=== PATIENT | female | born 1995 | race Caucasian/White ===

== ENCOUNTER 2016-09-13 16:03 | Inpatient (IN) | payer BC, OTHER ==
[~2016-09-13] VITALS: Ht 172.7 cm; Wt 54.4 kg
[2016-09-13 17:37] LABS: *URINE HCG, QUAL NEGATIVE (NEGATIVE)
[2016-09-13 17:47] LABS: *AMPHETAMINE, URINE NEGATIVE (NEGATIVE); *BARBITURATE, URINE NEGATIVE (NEGATIVE); *CANNABINOID, URINE NEGATIVE (NEGATIVE); *COCCAINE, URINE NEGATIVE (NEGATIVE); *OPIATE, URINE POSITIVE (NEGATIVE); *PHENCYCLIDINE SCREEN,URINE NEGATIVE (NEGATIVE)
[2016-09-13 18:27] VITALS: BP 90/60
--- NOTE | 2016-09-13 18:29 | NUR ---
ADMISSION: A 21 YO FEMALE A/O X 4 WITH A STEADY GAIT ADMITTED TO DETOX LEVEL OF CARE FOR OPIATE DEPENDENCE. SKIN INTACT AND WARM AND DRY.SHE STATES SHE HAS BEEN SMOKING HEROIN 1 GM DAILY X 1 MONTH. LAST USED AT 11:30 PM LAST NIGHT. SHE ALSO REPORTS USING I MG OF XANAX TWICE A WEEK FOR THE LAST MONTH. SHE REPORTS SHE WAS IN DETOX 6 WEEKS AGO. SHE STATES SHE ALSO WAS AT [facility] IN [place] 6 MONTHS AGO. SHE PRESENTS WITH GUARDED AFFECT AND ANXIOUS MOOD. SHE DENIES S/S OF W/D AT THIS TIME. SHE REPORTS LIVING WITH HER BOYFRIEND AND STATES HE DOES NOT USE. SHE DENIES MEDICAL HISTORY. SHE DENIES ALLERGIES. SHE DENIES A PCP. SHE DENIES A SEIZURE HISTORY. SHE DENIES S/I AND H/I. SHE STATES SHE CANNOT STOP USING ON HER OWN DESPITE NEGATIVE CONSEQUENCES. ORIENTED PT TO STAFF AND UNIT. ENCOURAGED INCREASED FLUIDS. WILL CONTINUE TO MONITOR AND PROVIDE SAFE AND SUPPORTIVE ENVIRONMENT.
[2016-09-13] MEDS ORDERED: THIAMINE HCL 200 MG/2 ML VIAL IM ONE (19:00)
[2016-09-13] MEDS ORDERED: MAG HYDROX/AL HYDROX/SIMETH 30 ML LIQUID UDC PO PRN (19:00)
[2016-09-13] MEDS ORDERED: diphenhydrAMINE 50 MG CAPSULE PO PRN (19:00)
[2016-09-13] MEDS ORDERED: ACETAMINOPHEN 325 MG TABLET PO PRN (19:00)
[2016-09-13] MEDS ORDERED: ONDANSETRON 4 MG/2 ML VIAL IM PRN (19:00)
[2016-09-13] MEDS ORDERED: LOPERAMIDE HCL 2 MG CAPSULE PO PRN ×2 (19:00)
[2016-09-13] MEDS ORDERED: LORAZEPAM 2 MG/1 ML VIAL IM PRN (19:00)
[2016-09-13] MEDS ORDERED: IBUPROFEN 600 MG TABLET PO PRN (19:00)
[2016-09-13] MEDS ORDERED: MAGNESIUM HYDROXIDE 30 ML LIQUID UDC PO PRN (19:00)
[2016-09-13] MEDS ORDERED: CLONIDINE HCL 0.1 MG TABLET PO PRN (19:00)
[2016-09-13] MEDS ORDERED: DICYCLOMINE HCL 20 MG TABLET PO PRN (19:00)
[2016-09-13] MEDS ORDERED: MIRALAX 17 GM POWD.PACK PO PRN (19:00)
[2016-09-13] MEDS ORDERED: BUPRENORPHINE HCL 2 MG TAB.SUBL SL PRN (19:00)
[2016-09-13] MEDS ORDERED: LORAZEPAM 1 MG TABLET PO PRN ×2 (19:00)
[2016-09-13] MEDS ORDERED: HYDROXYZINE PAMOATE 25 MG CAPSULE PO PRN (19:00)
[2016-09-13] MEDS ORDERED: METHOCARBAMOL 750 MG TABLET PO PRN (19:00)
[2016-09-13] MEDS ORDERED: ONDANSETRON ODT 4 MG TAB.RAPDIS SL PRN (19:00)
[2016-09-13 20:00] VITALS: BP 102/64
--- NOTE | 2016-09-13 20:00 | NUR ---
START OF SHIFT NOTE Pt is a 21 y/o female admitted for Heroin and Xanax dependence and use. Pt has NKA and denies any PMH. Per day shift nurse pt is not on a taper at this time, but has PRN medications available for any discomfort/distress reported or noted. Pt didn't receive any PRNS during the day shift. Last COW: 4. At this time pt is laying down in her bed watching television. Pt stated " I'm doing alright." Pt denied any pain/discomfort. Pt was encouraged to notify staff of any changes in condition or of any concerns. Pt verbalized an understanding. All safety measures in place; side rails up x 2, bed locked and in low position, and call light within reach. Will continue to monitor.
[2016-09-13] MEDS: GABAPENTIN 300 MG CAPSULE PO SCH (20:16)
--- NOTE | 2016-09-13 20:16 | NUR ---
CLONIDINE PRN ADMINISTRATION Pt stated " I'm starting to feel a little sick. I just feel like the withdrawals are coming on. Can I get something?" Clonidine 0.1 mg PO PRN was given (current blood pressure 102/64). Pt was encouraged to notify staff of any changes in condition or of any concerns. Pt verbalized an understanding. All safety measures in place. Will monitor for effectiveness.
--- NOTE | 2016-09-13 21:16 | NUR ---
CLONIDINE PRN REASSESSMENT Pt stated " I feel much better." PRN effective. All safety measures in place. Will continue to monitor.
--- NOTE | 2016-09-14 | NUR ---
COW, CIWA, AND VITALS REFUSED Pt refused to assessed and have vitals taken at this time. Pt was encouraged x 3 with risks and benefits explained, but the pt still declined. All safety measures in place. Will continue to monitor. Addendum: 09/14/16 at 0448 by MARIA LUZ MONSIVAIS LVN Amended: Links added.
[2016-09-14 04:00] VITALS: BP 109/61
--- NOTE | 2016-09-14 07:28 | NUR ---
END OF SHIFT NOTE Pt is a 21 y/o female admitted for Heroin and Xanax dependence and use. Pt has NKA and denies any PMH. Pt is not on a taper at this time, but is scheduled to start a 4 day Subutex taper this morning. Pt received Clonidine 0.1 mg PO PRN during the shift. Last COW: 1 and CIWA: 0 (0400). Pt slept for a total of 9 hours. All safety measures in place; side rails up x 2, bed locked and in low position, and call light within reach. Endorsed to the oncoming nurse.
[2016-09-14 08:00] VITALS: BP 100/60
--- NOTE | 2016-09-14 08:15 | NUR ---
START OF SHIFT: RECEIVED PT A/O X 4. SHE PRESENTS WITH IRRITABLE AND ANXIOUS MOOD AND CONGRUENT AFFECT. SHE C/O BODY ACHES,WATERY EYES,CHILLS,SWEATS,ANXIETY,IRRITABILITY,YAWNS,SNEEZES AND FATIGUE. COWS 15 . INDUCTION DOSE OF SUBUTEX GIVEN AND TAPER INITIATED ORDERED. PPD PLANTED TO LFA. ENCOURAGED INCREASED FLUIDS AND REST TODAY. WILL CONTINUE TO MONITOR AND MANAGE S/S OF W/D.
[2016-09-14] MEDS ORDERED: MULTIVITAMINS,THERAPEUTIC TABLET PO SCH (09:00)
[2016-09-14] MEDS ORDERED: TUBERCULIN,PURIF.PROT.DERIV. 5 TU/0.1 ML TEST ID ONE ×2 (09:00)
[2016-09-14] MEDS ORDERED: 4 DAY TAPER BUPRENORPHINE -SERENITY PROTOCOL SL PRN (09:00)
[2016-09-14] MEDS: MULTIVITAMINS,THERAPEUTIC TABLET PO SCH (09:36)
[2016-09-14] MEDS: DOCUSATE SODIUM 250 MG CAPSULE PO SCH (09:36)
[2016-09-14] MEDS: THIAMINE HCL 100 MG TABLET PO SCH (09:36)
[2016-09-14] MEDS: FOLIC ACID 1 MG TABLET PO SCH (09:36)
[2016-09-14] MEDS: BUPRENORPHINE HCL 2 MG TAB.SUBL SL SCH ×3 (09:38→20:26)
[2016-09-14] MEDS: GABAPENTIN 300 MG CAPSULE PO SCH ×3 (10:10→20:27)
--- NOTE | 2016-09-14 11:47 | NUR ---
PRN ATIVAN 1 MG PO GIVEN FOR TREMORS,SEVERE ANXIETY AND RESTLESSNESS. CIWA 8. WILL MONITOR EFFECTIVENESS OF PRN MED.
[2016-09-14 12:00] VITALS: BP 121/75
--- NOTE | 2016-09-14 12:17 | NUR ---
TERRELL PRUITT WAS EFFECTIVE. MATT NOW 6. SHE IS LESS SHAKY AND STATES SHE FEELS BETTER. Addendum: 09/14/16 at 1630 by LOLA APONTE RN MATT ACTUALLY 5 AT 1215
--- NOTE | 2016-09-14 12:40 | NUR ---
NEW ORDER PER MD FOR MODIFIED ATIVAN TAPER AND CIWAS Q 4 HRS.
[2016-09-14 12:52] LABS: ETHANOL < 3 MG/DL (0-0)
[2016-09-14 12:54] LABS: ALANINE AMINOTRANSFERASE 25 U/L (14-59); ALBUMIN 3.7 g/dL (3.4-5.0); ALKALINE PHOSPHATASE 49 U/L (50-136); ASPARTATE AMINOTRANSFERASE 18 U/L (15-37); BILIRUBIN,TOTAL 0.4 mg/dL (0.2-1.0); CALCIUM 9.1 mg/dL (8.5-10.1); CARBON DIOXIDE 28 mmol/L (21-32); CHLORIDE 109 mmol/L (98-107); CREATININE 0.8 mg/dL (0.6-1.3); GFR 90 mL/min (>60); GLUCOSE 104 mg/dL (74-106); MAGNESIUM 1.9 mg/dL (1.8-2.4); POTASSIUM 4.4 mmol/L (3.5-5.1); SODIUM SERUM 144 mmol/L (136-145); TOTAL PROTEIN, SERUM 7.5 g/dL (6.4-8.2); UREA NITROGEN, BLOOD 11 mg/dL (7-18)
[2016-09-14] MEDS: LORAZEPAM 1 MG TABLET PO SCH ×3 (13:02→20:27)
[2016-09-14 13:12] LABS: HIV-1 p24 ANTIGEN NON REACTIVE (NONREACTIVE); HIV-1/2 ANTIBODY NON REACTIVE (NONREACTIVE)
[2016-09-14 13:24] LABS: BASOPHILS # (AUTO) 0.1 K/uL (0.0-0.2); BASOPHILS % (AUTO) 0.8 % (0.0-2.0); EOSINOPHILS # (AUTO) 0.1 K/uL (0.0-0.7); EOSINOPHILS % (AUTO) 1.5 % (0.0-7.0); HEMATOCRIT 38.4 % (37.0-47.0); HEMOGLOBIN 12.8 g/dL (12.0-16.0); LYMPHOCYTES # (AUTO) 1.2 K/uL (0.8-4.8); MEAN CORPUSCULAR HEMOGLOBIN 26.9 uug (27.0-31.0); MEAN CORPUSCULAR HGB CONC 33 g/dL (32.0-37.0); MEAN CORPUSCULAR VOLUME 80.8 fL (81.0-99.0); MONOCYTES # (AUTO) 0.3 K/uL (0.1-1.30); MONOCYTES % (AUTO) 4.2 % (0.0-11.0); NEUTROPHILS # (AUTO) 5.5 K/uL (1.8-8.9); NEUTROPHILS % (AUTO) 76.5 % (38.5-71.5); PLATELET COUNT (AUTO) 288 K/uL (150-450); RED BLOOD CELL COUNT(AUTO) 4.76 MIL/uL (4.20-5.40); RED CELL DISTRIBUTION WIDTH 14.3 % (11.5-14.5); WHITE BLOOD COUNT (AUTO) 7.2 K/uL (4.0-11.2)
[2016-09-14 16:00] VITALS: BP 123/77
--- NOTE | 2016-09-14 19:13 | NUR ---
END OF SHIFT: PT WAS STARTED ON SUBUTEX TAPER THIS MORNING. SHE C/O BODY ACHES,ANXIETY,CHILLS, SWEATS,AND RESTLESSNESS. COWS 15. SHE REPORTED THE SUBUTEX WAS EFFECTIVE IN REDUCING S/S OF W/D. EARLY THIS AFTERNOON PT BECAME TREMULOUS AND SEVERELY ANXIOUS. ASSESSED PT AND SHE REPORTED BZO USE DIFFERENT THEN REPORTED ON ADMISSION. ONE TIME ORDER FOR ATIVAN PRN CIWA 8 AND EFFECTIVE (CIWA 5). MD STARTED HER ON A MODIFIED ATIVAN TAPER AT 1300 AND SHE IS TOLERATING WELL. LAST COWS 6 CIWA 3. PPD PLANTED TO LFA. SHE SPENT DAY IN BED RESTING ENCOURAGED AND INCREASING FLUIDS SUGGESTED. [facility]
--- NOTE | 2016-09-14 19:52 | NUR ---
START OF SHIFT NOTE Pt is a 21 y/o female admitted for Heroin and Xanax dependence and use. Pt has NKA and denies any PMH. Per day shift nurse pt was placed on a modified Subutex and Ativan taper, and is tolerating medication well, with no s/e or a/r reported. Pt didn't receive any PRNS during the day shift. Last COW: 6 and CIWA: 3 (1600) . At this time pt is laying down in her bed watching television. Pt stated " I'm okay, but I'm starting to feel antsy and I want to go to bed. Can I have something to help me sleep with my medication?" Pt denied any pain/discomfort. Pt was encouraged to notify staff of any changes in condition or of any concerns. Pt verbalized an understanding. All safety measures in place; side rails up x 2, bed locked and in low position, and call light within reach. Will continue to monitor.
[2016-09-14 20:00] VITALS: BP 116/71
--- NOTE | 2016-09-14 20:27 | NUR ---
BENADRYL PRN ADMINISTRATION Pt stated " Can I have something to help me sleep?" Benadryl 50 mg PO PRN was given. Pt was encouraged to notify staff of any changes in condition or of any concerns. Pt verbalized an understanding. All safety measures in place. Will monitor for effectiveness.
--- NOTE | 2016-09-14 21:27 | NUR ---
BENADRYL PRN REASSESSMENT Pt is asleep in bed with no signs of discomfort/distress noted. Pt's breathing is even and unlabored. Respirations are 14 breaths per minute. PRN effective. All safety measures in place. Will continue to monitor.
[2016-09-15] VITALS: BP 126/80
--- NOTE | 2016-09-15 04:00 | NUR ---
COW, CIWA, AND VITALS REFUSED Pt refused to be assessed and have vitals taken at this time. Pt was encouraged x 3 with risks and benefits explained, but the pt still declined. All safety measures in place. Will continue to monitor. Addendum: 09/15/16 at 0425 by MARIA LUZ MONSIVAIS LVN Amended: Links added.
--- NOTE | 2016-09-15 05:15 | NUR ---
NURSE COMMUNICATION Pt is currently asleep in bed with no signs of discomfort/distress noted. Pt's breathing is even and unlabored. All safety measures in place. Pt endorsed (in stable condition) to nurse (Maria A) to ensure monitoring is continued.
--- NOTE | 2016-09-15 05:16 | NUR ---
Nurse Communication - Assumed Patient Care Pt received in stable condition. Pt is currently sleeping, no s/s of distress noted, respirations even and unlabored. Safety measures in place. Will continue to monitor.
[2016-09-15 06:06] LABS: HCV AB <0.1 s/co ratio (0.0-0.9); HEPATITIS B CORE AB, IgM Negative (Negative); HEPATITIS B SURFACE AG Negative (Negative)
--- NOTE | 2016-09-15 07:00 | NUR ---
End of Shift Pt is a 21 year old female admitted for Heroin/Xanax dependence, placed on modified Subutex and Ativan taper. NKA, regular diet, full code. Pt denies any PMH. Pt care assumed at 0515. Pt was given Benadryl PRN for sleep, effective as reported by endorsing nurse and noted in nursing note. Latest assessment score at 0000: COWS 2 and CIWA 1. Pt continues on modified Subutex and Ativan taper. Pt slept for 4 hours, intake of 1000 ml PO and voids x2. Endorsed to day shift nurse.
[2016-09-15 08:00] VITALS: BP 122/71
--- NOTE | 2016-09-15 08:00 | NUR ---
START OF SHIFT Report received from shoe designer nurse. Received patient laying in her bed. Pt is a 21 year old female admitted for medically supervised withdrawal from Opiates and Benzodiazepines. Patient is full code with NKA, on fall precautions and regular diet. On Subutex taper and modified Ativan taper both started on 09/14/16. On assessment this AM: CIWA: 6 and COWS: 8. Patient reports tremors, sweating, anxiety, restlessness, goosebumps, and yawning. Patient denies SOB/chest pain. Med compliant. Subutex and Ativan given as ordered. Patient goes out and and escorted for fresh air break. Encouraged patient to participate in group meetings. Patient verbalized she feels better and hopefully she can attend today. Will continue to monitor patient.
[2016-09-15] MEDS ORDERED: BUPRENORPHINE HCL 2 MG TAB.SUBL SL SCH (09:00)
[2016-09-15] MEDS: FOLIC ACID 1 MG TABLET PO SCH (09:21)
[2016-09-15] MEDS: DOCUSATE SODIUM 250 MG CAPSULE PO SCH (09:21)
[2016-09-15] MEDS: LORAZEPAM 1 MG TABLET PO SCH ×3 (09:22→21:37)
[2016-09-15] MEDS: MULTIVITAMINS,THERAPEUTIC TABLET PO SCH (09:22)
[2016-09-15] MEDS: THIAMINE HCL 100 MG TABLET PO SCH (09:22)
[2016-09-15] MEDS: GABAPENTIN 300 MG CAPSULE PO SCH ×3 (09:22→21:37)
[2016-09-15 12:00] VITALS: BP 133/90
--- NOTE | 2016-09-15 14:00 | NUR ---
REASSESSMENT Pt denies nausea at this time, Zofran po prn was effective. Patient teaching on the medication provided. Addendum: 09/15/16 at 1703 by SAMSON CURRAN RN This is the reassessment for the PRN Zofran that was given.
[2016-09-15] MEDS ORDERED: ONDANSETRON ODT 4 MG TAB.RAPDIS SL PRN (14:30)
[2016-09-15] MEDS: BUPRENORPHINE HCL 2 MG TAB.SUBL SL SCH ×2 (15:05→21:37)
--- NOTE | 2016-09-15 15:07 | NUR ---
PRN Pt with c/o nausea. Zofran po prn per MD order given and tolerated well.
[2016-09-15 16:00] VITALS: BP 109/68
[2016-09-15] MEDS ORDERED: DOCUSATE SODIUM 250 MG CAPSULE PO PRN (16:30)
--- NOTE | 2016-09-15 19:22 | NUR ---
END OF SHIFT Pt is a 21 year old female admitted for medically supervised withdrawal from Opiates and Benzodiazepines. Patient is full code with NKA, on fall precautions and regular diet. On Subutex taper and modified Ativan taper both started on 09/14/16. Most recent assessment: CIWA: 6 and COWS: 9. Patient reports tremors, anxiety, restlessness, dilated pupil, nausea, goosebumps. Patient denies SOB/chest pain. Subutex and Ativan given as ordered. Remains compliant with plan of care care. Participates in group meetings. PRN Ondansetron po X1 given for nausea, effective, pt. reports nausea resolved after receiving prn. BM X2, requested for docusate to be discontinued, MD aware. TB skin test will be read 09/16/16. Tolerating diet well. All needs met. RN shift will continue to monitor patient.
--- NOTE | 2016-09-15 19:25 | NUR ---
START OF SHIFT NOTE Received report from day shift nurse. Pt is 21 y o female, admitted on 09/13/16 for opioid (heroin) and BZO (Xanax0 dependence. Pt placed on 4 day Subutex, 3 day Ativan tapers started 09/14/16. Pt aaox4, ambulatory with steady gait. Pt reports mild anxiety, states medication and diversion activity help to control anxiety levels, noted fingertip to fingertip tremors bilat. Lung sounds clear, hear rate regular. Last BM 09/15/16, denies n/v/d, denies urinary difficulties. Pt is fall precautions, call light within reach, bed locked in lowest position, side rails up x 2. Will continue with plan of care
[2016-09-15 20:00] VITALS: BP 116/78
[2016-09-16] VITALS: BP 109/70
[2016-09-16 04:00] VITALS: BP 113/78
--- NOTE | 2016-09-16 04:00 | NUR ---
CIWA/COWS COWS/CIWA assessment deferred per MD order; pt sleeping soundly, fall precautions in place, will continue to monitor Addendum: 09/16/16 at 0711 by MARGI MELENDEZ RN Amended: Links added.
--- NOTE | 2016-09-16 07:50 | NUR ---
END OF SHIFT NOTE Pt is 21 y o female, admitted on 09/13/16 for opioid (heroin) and BZO (Xanax0 dependence. Pt is on day 3 of 4 day Subutex, 3 day Ativan tapers started 09/14/16. Pt presented with mild anxiety, tremors, sweats at the beginning of shift; pt received all scheduled meds, last COWS 1, CIWA 1. VSS. No prns were given, pt slept for 6 hrs. Fall precautions in place, report endorsed to day shift nurse.
--- NOTE | 2016-09-16 07:55 | NUR ---
START OF SHIFT Received report from day night nurse. Client is 21 year old female, admitted on 09/13/16 for opioid (heroin) and BZO (Xanax) withdrawal. She is on 4 day Subutex, 3 day Ativan tapers started 09/14/16. Client is A/Ox4, she presents with irritable mood, flat affect, she reports anxiety, fatigue, and leg restlessness ambulatory with steady gait. Lung sounds clear, hear rate regular. Last BM 09/15/16, denies n/v/d, denies urinary difficulties. Pt is fall precautions, call light within reach, bed locked in lowest position, side rails up x 2. Will continue with plan of care
[2016-09-16] MEDS: BUPRENORPHINE HCL 2 MG TAB.SUBL SL SCH ×3 (08:47→21:46)
[2016-09-16] MEDS: LORAZEPAM 1 MG TABLET PO SCH ×2 (08:47→16:40)
[2016-09-16] MEDS: GABAPENTIN 300 MG CAPSULE PO SCH ×3 (08:47→21:45)
[2016-09-16] MEDS: FOLIC ACID 1 MG TABLET PO SCH (08:47)
[2016-09-16] MEDS: MULTIVITAMINS,THERAPEUTIC TABLET PO SCH (08:47)
[2016-09-16] MEDS: THIAMINE HCL 100 MG TABLET PO SCH (08:47)
[2016-09-16 08:49] VITALS: BP 117/75
--- NOTE | 2016-09-16 09:00 | NUR ---
Per Dr. Denis to order CX -Ray to rule out tuberculosis, client verbalized understanding.
--- NOTE | 2016-09-16 11:25 | NUR ---
PRN ZOFRAN Pt c/o increased nausea not relieved by nonpharmacological methods. No emesis noted. PRN Zofran administered as ordered, will reassess.
[2016-09-16 12:00] VITALS: BP 104/57
--- NOTE | 2016-09-16 12:25 | NUR ---
REASSESSMENT Pt denies nausea at this time, reports medication was effective.
[2016-09-16 16:44] VITALS: BP 110/59
--- NOTE | 2016-09-16 19:44 | NUR ---
END OF SHIFT Client is 21 year old female, admitted on 09/13/16 for opioid (heroin) and BZO (Xanax) withdrawal. Client is on 4 day Subutex, 3 day Ativan tapers started 09/14/16. Client presents with anxiety and leg restlessness, she denies any N/V/D. Client was able to participate on group therapy. Adequate intake and output. PRN Zofran for nausea, noted effective. Fall precautions in place. Endorsed to incoming nurse.
[2016-09-16 20:00] VITALS: BP 102/60
--- NOTE | 2016-09-16 20:00 | NUR ---
START OF SHIFT NOTE Received report from day shift nurse. Pt is 21 y o female, admitted on 09/13/16 for opioid (heroin) and BZO (Xanax) dependence. Pt placed on 4 day Subutex, 3 day Ativan tapers started 09/14/16. Pt aaox4, reports mild anxiety, chills, skin intact. Lung sounds clear, hear rate regular. Last BM 09/16/16, denies n/v/d, denies urinary difficulties. Pt is fall precautions, call light within reach, bed locked in lowest position, side rails up x 2. Will continue with plan of care
[2016-09-17] VITALS: BP 111/53
--- NOTE | 2016-09-17 | NUR ---
CIWA/COWS DEFERRED COWS/CIWA assessment deferred per MD order; pt sleeping soundly, fall precautions in place, will continue to monitor Addendum: 09/17/16 at 0424 by MARGI MELENDEZ RN Amended: Links added.
[2016-09-17 04:00] VITALS: BP 107/57
--- NOTE | 2016-09-17 04:00 | NUR ---
CIWA/COWS DEFERRED COWS/CIWA assessment deferred per MD order; pt sleeping soundly, fall precautions in place, will continue to monitor Addendum: 09/17/16 at 0625 by MARGI MELENDEZ RN Amended: Links added.
--- NOTE | 2016-09-17 07:40 | NUR ---
END OF SHIFT NOTE Pt is 21 y o female, admitted on 09/13/16 for opioid (heroin) and BZO (Xanax) dependence. Pt continues on 4 day Subutex, 3 day Ativan tapers started 09/14/16. Pt reported anxiety, chills, sweats as withdrawal s/s, no prns were given. Last CIWA 2, COWS 4 at 1999. VSS. Pt slept for 6 hrs. Fall precautions in place. Report endorsed to day shift nurse.
--- NOTE | 2016-09-17 07:55 | NUR ---
START OF SHIFT Rcvd client in room, she presents with irritable mood, flat affect, she reports anxiety, fatigue, leg restlessness, she denies confusion, headache, nausea, vomiting or diarrhea. Client is 21 year old female, admitted on 09/13/16 for opioid (heroin) and BZO (Xanax) withdrawal. Todays is her last of 4 day Subutex, 3 day Ativan tapers started 09/14/16. Last BM 09/15/16. Pt is fall precautions, call light within reach, bed locked in lowest position, side rails up x 2. Will continue with plan of care
[2016-09-17 08:50] VITALS: BP 118/79
[2016-09-17] MEDS: MULTIVITAMINS,THERAPEUTIC TABLET PO SCH (09:00)
[2016-09-17] MEDS ORDERED: BUPRENORPHINE HCL 2 MG TAB.SUBL SL SCH (09:00)
[2016-09-17] MEDS: FOLIC ACID 1 MG TABLET PO SCH (09:00)
[2016-09-17] MEDS: THIAMINE HCL 100 MG TABLET PO SCH (09:00)
[2016-09-17] MEDS: GABAPENTIN 300 MG CAPSULE PO SCH ×3 (09:51→21:33)
[2016-09-17 12:00] VITALS: BP 106/68
[2016-09-17] MEDS ORDERED: HYDR-3895 PO (15:54)
[2016-09-17] MEDS ORDERED: Gabapentin PO (15:54)
[2016-09-17] MEDS ORDERED: METH-33 PO (15:54)
[2016-09-17] MEDS ORDERED: DICY20TA28 PO (15:54)
[2016-09-17 16:00] VITALS: BP 110/69
--- NOTE | 2016-09-17 19:47 | NUR ---
END OF SHIFT Client is 21 year old female, admitted on 09/13/16 for opioid (heroin) and BZO (Xanax) withdrawal. Client completed 4 day Subutex, 3 day Ativan tapers, tolerated well. Client presents with anxiety and leg restlessness, she denies any N/V/D. Client was able to participate on group therapy. Adequate intake and output. PRN Zofran for nausea, noted effective. Fall precautions in place. Endorsed to incoming nurse.
[2016-09-17 20:00] VITALS: BP 124/70
--- NOTE | 2016-09-17 21:00 | NUR ---
START OF SHIFT NOTE: Patient is alert, oriented x4, good mood, no pain, no nausea, no vomiting, mild body discomfort. V/S-WNLs. Patient is going to be discharged tomorrow. She is here for opioid and BZO withdrawal. Patient reported leg restlessness, medications were given as ordered with effective result. Tolerated well. Patient continues on seizure precautions . Side rails up. Fluids encouraged. Breathing unlabored. Lungs clear. Abdomen soft, no distention. Voiding freely. Will continue to provide safe and supportive environment.
[2016-09-18] VITALS: BP 112/76
[2016-09-18 06:12] VITALS: BP 122/72
--- NOTE | 2016-09-18 06:15 | NUR ---
END OF SHIFT NOTE: Patient slept comfortably about 7 hrs during the night. V/S-WNLs. No pain, no discomfort noted. Patient is alert, oriented x4, makes her needs known to staff. Breathing even, unlabored, lungs clear bilaterally, skin intact, abdomen soft, no distention noted. Patient continues on seizure precautions . Side rails up. Fluids encouraged. Voiding freely. Report given to day shift nurse.
[2016-09-18 07:30] LABS: *AMPHETAMINE, URINE NEGATIVE (NEGATIVE); *BARBITURATE, URINE NEGATIVE (NEGATIVE); *CANNABINOID, URINE NEGATIVE (NEGATIVE); *COCCAINE, URINE NEGATIVE (NEGATIVE); *OPIATE, URINE NEGATIVE (NEGATIVE); *PHENCYCLIDINE SCREEN,URINE NEGATIVE (NEGATIVE)
--- NOTE | 2016-09-18 07:53 | NUR ---
START OF SHIFT Received pt this am aox4. Pt states she is ready for discharge this morning. Last COWS 1 CIWA 1 per night nurse. No PRNs needed during the night per night nurse. UDS complete and in chart. Pt slept 6 hours. Subutex and Ativan taper has been completed. Will administer 0900 medication and dc patient per orders.
[2016-09-18 08:00] VITALS: BP 120/68
[2016-09-18] MEDS: THIAMINE HCL 100 MG TABLET PO SCH (08:32)
[2016-09-18] MEDS: MULTIVITAMINS,THERAPEUTIC TABLET PO SCH (08:32)
[2016-09-18] MEDS: GABAPENTIN 300 MG CAPSULE PO SCH (08:32)
[2016-09-18] MEDS: FOLIC ACID 1 MG TABLET PO SCH (08:32)
--- NOTE | 2016-09-18 10:23 | NUR ---
DISCHARGE NOTE: Pt is in stable condition. Pt is aox4 with vss. escorted to lobby at 0923 by FIRST OFFICER and taken to [facility] by [employer] [facility]. Belongings returned to pt. Educated pt on dc instructions and medications. All discharge paperwork complete and signed with todays date. Pt verbalized understanding of paperwork and medications given. Last COWS 1 CIWA 0. Pt denies S/I and H/I. has been notified of pt discharge.
== END 2016-09-18 09:23 | disposition other institution (70) | DRG 895 ==
LOC: SRC 16:03
PROVIDERS: ADMIT Internal Medicine; ATTEND Internal Medicine
DX: F11.23 Opioid dependence with withdrawal (principal); F13.230 Sedative, hypnotic or anxiolytic dependence with withdrawal, uncomplicated; F17.210 Nicotine dependence, cigarettes, uncomplicated; E07.81 Sick-euthyroid syndrome; F41.9 Anxiety disorder, unspecified
CPT/HCPCS: 36415; 70030-TC; 71010; 80307; 80346; 80361; 83735; 84443; 84703; 85025; 86580; 86592; 86705; 86803; 87340; 87806; A4663; G6040-TC; Q0162; Q0163

== ENCOUNTER 2017-02-15 12:25 | Inpatient (IN) | payer BC, OTHER ==
[~2017-02-15] VITALS: Ht 172.7 cm; Wt 54.0 kg
[~2017-02-15 12:25] MED LIST: DICY20TA28 PO; Gabapentin PO; HYDR-3895 PO; METH-33 PO
--- NOTE | 2017-02-16 16:11 | NUR ---
INTAKE ASSESSMENT Patient is 21yo female patient presented for admission for supervised withdrawal from heroin and xanax. Alert and oriented X4. Vital signs: 99/56, HR 92, R 18, 02 sat 95% RA, pain 6/10 (sore throat). Patient denies any SOB and chest pain. Denies sweating, n/v, stuffy nose at this time. Patient reports symptoms such as headache, hot flashes, mild tremors and craving. Explained to patient (i.e q4h vital, medication handling including narcotics, disposal of any contraband. Patient has no home meds. Patient appears to be stable to proceed with her admission to [facility] for further care. Patient has no home meds.
[2017-02-16 17:00] VITALS: BP 99/56
[2017-02-16 17:31] LABS: *URINE HCG, QUAL NEGATIVE (NEGATIVE)
[2017-02-16 17:40] LABS: *AMPHETAMINE, URINE NEGATIVE (NEGATIVE); *BARBITURATE, URINE NEGATIVE (NEGATIVE); *CANNABINOID, URINE NEGATIVE (NEGATIVE); *COCCAINE, URINE NEGATIVE (NEGATIVE); *OPIATE, URINE POSITIVE (NEGATIVE); *PHENCYCLIDINE SCREEN,URINE NEGATIVE (NEGATIVE)
--- NOTE | 2017-02-16 19:10 | NUR ---
Start of Shift Patient Received. Patient is in her room, awake, alert and verbally responsive. Breathing even and non labored. Patient is a 21 year old female admitted on 02/16/17 for Opiate and Benzo Dependence under the care of Dr. Lopez. Patient is to start o5 day Valium taper tonight 2100 and 5 Day Subutex taper tomorrow 02/16/17. Patient verbalizes no known allergies, wishes to be full code, following a regular diet, placed on fall and seizure precautions, skin noted intact. Last noted COWS 4 and CIWA 4. All needs attended to promptly. Will continue plan of care as ordered.
--- NOTE | 2017-02-16 19:14 | NUR ---
ADMISSION NOTE: Patient is 21yo female patient presented for admission for supervised withdrawal from heroin and xanax. Alert and oriented X4, full code with NKA. Vital signs: 99/56, HR 92, R 18, 02 sat 95% RA, pain 6/10 (sore throat). Patient denies any SOB and chest pain. Denies sweating, n/v, stuffy nose at this time. CIWA: 4 and COWS: 4 on admission. Patient reports symptoms such as headache, hot flashes, mild tremors and craving. Patient has steady gait. Patient denies any medical history. Has history of seizure, padding on side rail provided. No history of fall. Denies suicidal and homicidal ideation. Patient has no home med. Patient has no PCP at this time. Substance use history per patient report: 1) Heroin - pt. reports last use was 02/15/17, used 2/day since 09/20/16, became dependent at age 20. 2) Xanax - pt. reports last use was 02/15/17, used 6mg/day since 09/20/16, became dependent in 2015. Rehab history: [facility] in [place], [place] - 2016 (60 days) [facility] - Mar-Apr 2016 (60 days)
[2017-02-16 20:30] VITALS: BP 99/60
[2017-02-16 21:36] LABS: BASOPHILS # (AUTO) 0.1 K/uL (0.0-8.0); BASOPHILS % (AUTO) 1.2 % (0.0-2.0); EOSINOPHILS # (AUTO) 0.4 K/uL (0.0-0.7); EOSINOPHILS % (AUTO) 6.9 % (0.0-7.0); HEMATOCRIT 37.3 % (37-47); HEMOGLOBIN 12.5 G/DL (12.0-16.0); LYMPHOCYTES # (AUTO) 2.2 K/UL (0.8-4.8); LYMPHOCYTES % (AUTO) 38.2 % (20.5-51.5); MEAN CORPUSCULAR HEMOGLOBIN 26.6 UUG (27.0-31.0); MEAN CORPUSCULAR HGB CONC 34 g/dL (32.0-37.0); MEAN CORPUSCULAR VOLUME 79.4 FL (81.0-99.0); MONOCYTES # (AUTO) 0.4 K/UL (0.1-1.30); MONOCYTES % (AUTO) 7.3 % (0.0-11.0); NEUTROPHILS # (AUTO) 2.5 K/UL (1.8-8.9); NEUTROPHILS % (AUTO) 46.4 % (38.5-71.5); PLATELET COUNT (AUTO) 223 K/UL (150-450); WHITE BLOOD COUNT (AUTO) 5.6 K/UL (4.0-11.2)
[2017-02-16 21:56] LABS: ETHANOL < 3 MG/DL (0-0)
[2017-02-16 21:59] LABS: ALANINE AMINOTRANSFERASE 11 U/L (14-59); ALKALINE PHOSPHATASE 60 U/L (50-136); ASPARTATE AMINOTRANSFERASE 9 U/L (15-37); BILIRUBIN,TOTAL 0.3 mg/dL (0.2-1.0); CARBON DIOXIDE 33 mmol/L (21-32); CHLORIDE 107 mmol/L (98-107); CREATININE 0.8 mg/dL (0.6-1.3); GLUCOSE 114 mg/dL (74-106); MAGNESIUM 1.8 mg/dL (1.8-2.4); POTASSIUM 3.9 mmol/L (3.5-5.1); TOTAL PROTEIN, SERUM 7.1 g/dL (6.4-8.2); UREA NITROGEN, BLOOD 14 mg/dL (7-18)
[2017-02-17 00:19] VITALS: BP 96/50
[2017-02-17 04:00] VITALS: BP 108/60
--- NOTE | 2017-02-17 07:00 | NUR ---
Start of Shift Endorsement received from nightshift nurse. Pt 21 y/o female admitted for Heroin dependence. PT has been placed on a 5 day Valium and 5 day Subutex taper. Pt is tolerating the taper, mildly withdrawing AEB COWS 4, CIWA 4 at 0400. Pt did not receive any PRN medications. Pt reports sleeping 9 hours. PT appears to be asleep at this time, breathing even and unlabored, responsive to touch and name. VS WNL. Full Code. PT is alert and oriented x4. Pt is in STABLE condition at this time. Remains compliant with medication and diet regimen. All needs have been met, All safety measures in place per hospital policy. Bed in lowest position, side rails up x2, call-light within reach. Will continue to monitor
--- NOTE | 2017-02-17 07:18 | NUR ---
End of Shift Patient is in bed sleeping but easily aroused to verbal stimuli. Breathing even and on labored. Patient is a 21 year old female admitted on 02/16/17 for Opiate and Benzo Dependence under the care of Dr. Lopez. Patient started on a 5 day Valium taper and is set to start a 5 day Subutex taper this morning 02/17/17. Patient verbalizes no known allergies, full code, regular diet, placed on fall and seizure precautions, skin noted intact. No Past medical history verbalized but patient verbalized of history of seizures due to withdrawal. Last noted COWS 4 and CIWA 3. All needs attended to promptly. Will endorse to continue plan of care as ordered.
[2017-02-17 08:00] VITALS: BP 109/73
[2017-02-17 12:00] VITALS: BP 122/71
--- NOTE | 2017-02-17 15:30 | NUR ---
PRN Medications Administered PRN Motrin and Robaxin for reported generalized body pain of 7/10. Will re-assess.
--- NOTE | 2017-02-17 15:55 | NUR ---
Medication Re-assessment Pt reports decreased in pain an discomfort from 7/10 to 4/10. Medication was partially effective.
[2017-02-17 16:00] VITALS: BP 109/73
--- NOTE | 2017-02-17 19:10 | NUR ---
Start of Shift Patient is in bed sleeping but easily aroused to verbal stimuli. Breathing even and non labored. Patient is a 21 year old female admitted on 02/16/17 for Opiate and Benzo Dependence under the care of Dr. Lopez. Patient continues on both 5 day Valium taper and 5 day Subutex taper. Patient verbalizes no known allergies, full code, regular diet, placed on fall and seizure precautions, skin noted intact. No Past medical history verbalized but patient verbalized of history of seizures due to withdrawal. Per endorsement, patient was given PRN Robaxin and Motrin with medications noted to be effective. Last noted COWS 10 and CIWA 9. All needs attended to promptly. Will endorse to continue plan of care as ordered.
--- NOTE | 2017-02-17 19:31 | NUR ---
End of Shift Endorsement given to nightshift nurse. Pt 21 y/o female admitted for Heroin dependence. PT has been placed on a 5 day Valium and 5 day Subutex taper. Pt is tolerating the taper, moderately withdrawing AEB COWS 9, CIWA 8 at 1600. Pt received PRN Robaxin and Motrin. Pt remained in her the whole day refusing to participate in groups and activities despite encouragements.. PT appears to be asleep at this time, breathing even and unlabored, responsive to touch and name. Intake: 600ml, Void x2, BM x2. VS WNL. Full Code. PT is alert and oriented x4. Pt is in STABLE condition at this time. Remains compliant with medication and diet regimen. All needs have been met, All safety measures in place per hospital policy. Bed in lowest position, side rails up x2, call-light within reach. Will continue to monitor
[2017-02-17 20:04] VITALS: BP 115/63
[2017-02-18 00:25] VITALS: BP 101/56
[2017-02-18 04:20] VITALS: BP 96/55
--- NOTE | 2017-02-18 07:01 | NUR ---
End of Shift Patient is in bed sleeping but easily aroused to verbal stimuli. Breathing even and non labored. Patient is a 21 year old female admitted on 02/16/17 for Opiate and Benzo Dependence under the care of Dr. Lopez. Patient continues on both 5 day Valium taper and 5 day Subutex taper. No known allergies, Full Code, Regular Diet, placed on fall and seizure precautions, skin noted intact. Patient verbalized of history of seizures due to withdrawal. Patient is noted to be high risk for AMA verbalizing "she just wants to leave" Patient has been receptive to staff and encouragement in staying to continue sobriety. CN, Administrative Staff, and MD all aware. No PRN medications administered. Last noted COWS 9 and CIWA 10. All needs attended to promptly. Will endorse to continue plan of care as ordered.
--- NOTE | 2017-02-18 07:36 | NUR ---
START OF SHIFT NOTE: Received report from candy waffle assembler nurse. 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 Tolerating well. Pt is alert and oriented X4. Color good, skin warm and dry. Respirations even and unlabored. Resting in bed. Safety precautions observed. Call light within reach. Will continue to monitor.
[2017-02-18 08:15] VITALS: BP 96/55
--- NOTE | 2017-02-18 09:45 | NUR ---
Pt verbalized that she would like to leave AMA. Meds held per and Dr. Mendez in discharge notified.
[2017-02-18 11:08] LABS: HEPATITIS B SURFACE AG Negative (Negative)
--- NOTE | 2017-02-18 11:20 | NUR ---
Pt left the unit AMA after multiple attempts from staff members and Dr. Lopez to redirect her. She was insistent on leaving. Escorted off the unit by T with all valuables and belongings. No home meds. Pt signed AMA form and Community resources given to pt.
== END 2017-02-18 11:20 | disposition left against medical advice (07) | DRG 894 ==
LOC: SRC 02-16 15:36
PROVIDERS: ADMIT Internal Medicine; ATTEND Internal Medicine
PROC: HZ2ZZZZ Detoxification Services for Substance Abuse Treatment (ICD-10-PCS; principal; 2017-02-16)
PROC: HZ51ZZZ Individual Psychotherapy for Substance Abuse Treatment, Behavioral (ICD-10-PCS; 2017-02-18)
DX: F11.23 Opioid dependence with withdrawal (principal); E87.3 Alkalosis; F13.230 Sedative, hypnotic or anxiolytic dependence with withdrawal, uncomplicated; F14.10 Cocaine abuse, uncomplicated; E86.0 Dehydration; F41.9 Anxiety disorder, unspecified; F39 Unspecified mood [affective] disorder; F17.210 Nicotine dependence, cigarettes, uncomplicated
CPT/HCPCS: 36415; 80307; 80346; 80361; 83735; 84703; 85025; 86580; 86592; 86705; 86803; 87340; 87806; G0480